=== PATIENT | female | born 1970 | race Caucasian/White ===

== ENCOUNTER 2024-05-26 21:08 | Emergency (ER) | payer SELFPAY ==
[~2024-05-26] VITALS: Ht 157.5 cm; Wt 53.5 kg
[2024-05-26 21:35] VITALS: BP 143/97; PULSE 78; RESP 15; O2SAT 96
[2024-05-26] MEDS ORDERED: LACTATED RINGERS 1000ML 1,000 ML IV ONE (22:00)
== END 2024-05-26 23:15 | disposition home or self-care (01) ==
LOC: EDH 21:08
DX: Z04.89 Encounter for examination and observation for other specified reasons (principal); Z59.00 Homelessness unspecified
CPT/HCPCS: 99281

== ENCOUNTER 2025-08-08 23:07 | Emergency (ER) | payer SELFPAY ==
[~2025-08-08] VITALS: Ht 162.6 cm; Wt 72.6 kg
[2025-08-08 23:09] VITALS: BP 142/95; PULSE 98; RESP 17; TEMP 98.1
--- NOTE | 2025-08-08 23:15 | NUR ---
WHILE TRIAGING PATIENT BROUGHT IN WITH EMS, PATIENT REPORTED SHE WAS GOING OUTSIDE FOR A CIGARETTE THEN PROCEDED TO WALK OUT THE EMS BAY DOORS
--- NOTE | 2025-08-08 23:17 | NUR ---
EMS REPORTED PATIENT WALKED OFF LEAVING [facility].
== END 2025-08-08 23:19 | disposition left against medical advice (07) ==
LOC: EDH 23:07
DX: M79.674 Pain in right toe(s) (principal); Z53.21 Procedure and treatment not carried out due to patient leaving prior to being seen by health care provider
CPT/HCPCS: 99281